=== PATIENT | male | born 1945 | race African-American/Black ===

== ENCOUNTER → 2016-08-07 10:14 | Outpatient (CLI) | payer MEDICARE ==
[2015-12-31 09:13] VITALS: BMI 21.0
[~2016-08-07 10:14] MED LIST: ALPHAGAN P15 ML RIGHT EYE; DIAMOX SEQUELS500 MG PO; HYDROCODONE-APA1 TAB PO; LUMIGAN 0.01%2.5 ML RIGHT EYE; PEPCID40 MG PO; PROAIR HFA8.5 GM INH; SYMBICORT 16010.2 GM INH; TIMOPTIC 0.5 % O5 ML RIGHT EYE; ZANTAC150 MG PO
== END | disposition home or self-care (01) ==
LOC: D.CT 10:14
DX: C34.31 Malignant neoplasm of lower lobe, right bronchus or lung (principal)

== ENCOUNTER → 2016-10-25 12:02 | Outpatient (CLI) | payer MEDICARE ==
[2015-12-31 09:13] VITALS: BMI 21.0
== END | disposition home or self-care (01) ==
LOC: D.CT 12:02
DX: C34.31 Malignant neoplasm of lower lobe, right bronchus or lung (principal)

== ENCOUNTER → 2017-05-24 09:25 | Outpatient (CLI) | payer MEDICARE ==
[2015-12-31 09:13] VITALS: BMI 21.0
== END | disposition home or self-care (01) ==
LOC: D.US 09:25
DX: M79.601 Pain in right arm (principal)

== ENCOUNTER → 2017-07-02 07:48 | Outpatient (CLI) | payer MEDICARE ==
[2015-12-31 09:13] VITALS: BMI 21.0
== END | disposition home or self-care (01) ==
LOC: D.CT 07:48
DX: C34.31 Malignant neoplasm of lower lobe, right bronchus or lung (principal)

== ENCOUNTER → 2017-10-25 08:02 | Outpatient (CLI) | payer MEDICARE ==
[2015-12-31 09:13] VITALS: BMI 21.0
== END | disposition home or self-care (01) ==
LOC: D.CT 08:02
DX: C34.90 Malignant neoplasm of unspecified part of unspecified bronchus or lung (principal)

== ENCOUNTER 2018-10-07 06:49 | Observation (INO) | payer MEDICARE ==
[2018-10-07] VITALS (12 sets, daily range): BP systolic 117–143; BP diastolic 75–89; BMI 22.8; BMI 21.1
[~2018-10-07] VITALS: Ht 172.7 cm; Wt 63.0 kg
[2018-10-07] MEDS ORDERED: TOPROL XL25 MG PO (07:57)
[2018-10-07] MEDS ORDERED: FOLATE0.4 MG PO (07:58)
[2018-10-07 08:36] LABS: BASOPHILS 0.3 % (0-2); EOSINOPHILS 3.1 % (0-7); HEMATOCRIT 39.5 % (42.0-54.0); HEMOGLOBIN 13.4 g/dL (13.5-17.5); IMMATURE GRANULOCYTES 0.2 % (0-5); LYMPHOCYTES 23.2 % (15-50); MCH 27.3 pg (26.0-34.0); MCHC 33.9 g/dL (31.0-37.0); MCV 80.4 fL (80.0-100.0); MEAN PLATELET VOLUME 10.7 fL (7.4-10.4); MONOCYTES 15.4 % (2-11); NEUTROPHILS 57.8 % (40-80); PLATELET COUNT 183 10x3/uL (130-400); RBC 4.91 10x6/uL (4.20-6.10); RDW 14.8 % (11.5-14.5); WBC 5.7 10x3/uL (4.8-10.8)
[2018-10-07 08:40] LABS: ANION GAP 15.1 mmol/L (8-16); CALCIUM 8.8 mg/dL (8.5-10.1); CARBON DIOXIDE 20.8 mmol/L (21.0-32.0); CREATININE - SERUM 1.2 mg/dL (0.6-1.3); POTASSIUM - SERUM 3.9 mmol/L (3.5-5.1)
[2018-10-07 08:43] LABS: APTT 28.2 SECONDS (22.8-39.4); INR 1.27 (0.85-1.17); PROTIME 15.4 SECONDS (11.6-15.0)
--- NOTE | 2018-10-07 11:37 | NUR ---
1100 RECORDING VS ON POST PROCEDURE CHECKLIST IN PAPER CHART
--- NOTE | 2018-10-07 12:46 | NUR ---
1240 REPORT CALLED TO PARISH COLLINS RN. REVIEWED POST OP ORDERS WITH [facility] AND WAITING FOR F/U CXR BEFORE TRANSFERRING PT TO 2139. PT STATES HE IS NOT ON A RESTRICTIVE DIET EXCEPT HE DOESN'T USE SALT.
--- NOTE | 2018-10-07 13:03 | NUR ---
1317 PT HAS NO C/O CHEST PAIN OR SOB. VSS. DRESSING DRY AND INTACT WITH NO HEMATOMA NOTED. PT TRANSFERRED TO 2139 VIA STRETCHER.
--- NOTE | 2018-10-07 14:38 | NUR ---
RECEIVED PT FROM IR SPECIALS. PT IS LYING SEMI FOWLERS. CALL LIGHT W/I REACH. PT IS RESTING AT THE MOMENT. RR EVEN AND UNLABORED ON RA. 1/2NS INFUSING VIA L.FOR PIV. NO S/S OF DISTRESS NOTED. VSS AND WNL. PT DENIES ANY NEEDS. WILL CTM.
--- NOTE | 2018-10-07 20:17 | NUR ---
EVENING ROUNDS COMPLETED. VSS, AAOX3, PT STATES HE HAS BEEN SLEEPING ALL DAY. DENIES ANY FURTHER NEED FOR COMFORT CARE. ACETAZOLAMIDE NOT IN PYXIS. NOTIFIED PHARMACY. [facility] STATES MEDICATION IS NOT IN STOCK AT THIS MOMENT, AND THEY WILL TRY TO GET IT BEFORE THE END OF THE SHIFT.
--- NOTE | 2018-10-07 23:00 | NUR ---
RECIEVED ACETAZOLAMIDE FROM PHARMACY. MED GIVEN TO PT. PT IN BED WITH EYES OPEN. WILL CPOC.
[2018-10-08 04:00] VITALS: BP 142/78
[2018-10-08 07:56] VITALS: Ht 172.7 cm; Wt 63.0 kg
[2018-10-08 08:15] VITALS: BP 131/78
--- NOTE | 2018-10-08 13:41 | NUR ---
ALERT AND ORIENTED X4. SITTING UP IN CHAIR. DC LT HAND IV TIP INTACT. DISCHARGE INSTRUCTIONS GIVEN VERBALLY AND WRITTEN. UNABLE TO SIGN DISCHARGE PAPERS DUE TO VISION IMPAIRED. ESCORT TO BUS. REMAINS FREE FROM INJURY.
--- NOTE | 2018-10-08 17:01 | MORECARE ---
CASE MANAGEMENT DISCHARGE SUMMARY PATIENT: GRACIELA RAYMOND UNIT: [id number] ADM DATE: 10/08/18 AGE: 73 : 49 SEX: M ROOM/BED: D.2950 AUTHOR: JACINTO,DOC PHYSICIAN: REFERRING PHYSICIAN: JACK PATEL MD DATE OF SERVICE: 10/08/18 Discharge Plan Patient Name: GRACIELA RAYMOND Facility: [facility]:[place] : 1945 Planned Disposition: Home Anticipated Discharge Date: 10/08/18 Discharge Date: 10/08/2018 Expected LOS: 1 Initial Reviewer: [email or web address] Initial Review Date: 10/08/2018 Generated: 10/08/18 6:01 pm Comments DCP- Discharge Planning Updated by [email or web address]: Chester Reyes on 10/08/18 3:[address] Patient Name: GRACIELA RAYMOND Encounter No: [id number] : 1945 Primary Insurance: MEDICARE A & B Anticipated DC Date: 10-08-2018 Planned Disposition: Home DCP note: CM MET WITH PT IN ROOM TO DISCUSS DISCHARGE PLANNING AND NEEDS. PT REPORTS LIVING AT HOME INDEPENDENTLY AND ALONE. SOMETIMES, PT'S NEPHEW STAYS WITH PT AT HOME. PT HAS A CANE USED FOR AMBULANCE ASSISTANCE PT IS VISUALLY IMPAIRED (LEGALLY BLIND). PT HAS NO MEDICAL EQUIPMENT PROVIDER PREFERENCE AND NO OUTSIDE SERVICES ASSISTING IN THE HOME. CM DISCUSSED AVAILABILITY OF HOME HEALTH, REHAB SERVICES AND MEDICAL EQUIPMENT. PT DENIES DISCHARGE NEEDS, REPORTS HAVING .50 CENTS TO RIDE BUS HOME FOR DISCHARGE TODAY. BEDSIDE NURSE NOTIFIED. CALVIN Ruvalcaba DCPIA - Discharge Planning Initial Assessment Updated by [email or web address]: Chester Reyes on 10/08/18 4:57 pm * Is the patient Alert and Oriented? Yes * How many steps to enter\exit or inside your home? NONE * PCP DR. DIAZ * Pharmacy [facility] * Preadmission Environment Home Alone * ADLs Independent * Equipment Cane * Other Equipment CANE USED FOR VISUALLY IMPAIRED AMBULATION NO MEDICAL EQUIPMENT PROVIDER PREFERNECE * List name and contact numbers for known caregivers / representatives who currently or will assist patient after discharge: TONIO PASTOR, * Verbal permission to speak to the caregivers and representatives has been obtained from the patient. N/A * Community resources currently utilized None * Please name any agencies selected above. NONE * Additional services required to return to the preadmission environment? No * Can the patient safely return to the preadmission environment? Yes * Has this patient been hospitalized within the prior 30 days at any hospital? No Patient Name: GRACIELA RAYMOND Page [id number] at 1701 All edits/amendments must be made on the electronic document DICTATION DATE: 10/08/181700 BIOCHEMICAL DEVELOPMENT ENGINEER: DARREL 10/08/181700 RPT#: [id number] DC DATE:10/08/18 STATUS: DIS IN [facility] [address] [place] [address] END OF REPORT
[2018-10-08 20:06] LABS: ACID FAST SMEAR Negative (()); AFB SPECIMEN PROCESSING Tissue Grinding (())
== END 2018-10-08 14:41 | disposition home or self-care (01) ==
LOC: D.M2 06:49 → D.SP 06:49 → D.CT 09:00 → D.M2 13:08 → D.SP 10-08 10:40 → D.M2 10-08 10:47 → OBSVTIME 10-08 10:47 → D.M2 10-08 14:41
PROVIDERS: Specialist; ADMIT Emergency Medicine; ATTEND Emergency Medicine
DX: C34.31 Malignant neoplasm of lower lobe, right bronchus or lung (principal); I10 Essential (primary) hypertension; J44.9 Chronic obstructive pulmonary disease, unspecified; K21.9 Gastro-esophageal reflux disease without esophagitis; H40.9 Unspecified glaucoma